=== PATIENT | male | born 1970 ===

== ENCOUNTER 2020-09-01 15:19 | Emergency (ER) | payer SELFPAY ==
[2020-09-01 17:32] VITALS: BP 116/66
--- NOTE | 2020-09-01 19:16 | Emergency Department Report ---
Upper Extremity - HPI Chief Complaint: Extremity Injury, Upper Stated Complaint: GOUT LT ELBOW/RT WRIST Time Seen by Provider: 09/01/20 18:44 Upper Extremity: Right Elbow Occurred When: Today Symptoms: Yes Pain with Movement, Yes Swelling Other History: 49-year-old male presents here today with complaints of acute gout flare to his right elbow. Patient states that his symptoms started today. He reports pain and swelling to the right posterior elbow. He states that he has had similar flares up in his elbow in the past. He states that he takes allopurinol every day. He did admit that he had some ribs yesterday. He reports no other symptoms at this time. ED Review of Systems ROS: Stated complaint: GOUT LT ELBOW/RT WRIST Other details as noted in HPI Comment: All other systems reviewed and negative Constitutional: denies: chills, fever Musculoskeletal: joint swelling, arthralgia ED Past Medical Hx - Past Medical History Previous Medical History?: Yes Additional medical history: gout - Social History Smoking Status: Never Smoker Substance Use Type: None - Medications Home Medications: Home Medications Medication Instructions Recorded Confirmed Last Taken Type HYDROcodone/APAP 5-325 [Flat Top 1 each PO Q4HR PRN #10 tablet 09/01/20 Unknown Rx 5/325] Indomethacin [Indocin] 25 mg PO Q8H #30 capsule 09/01/20 Unknown Rx predniSONE [Deltasone] 50 mg PO QDAY #5 tab 09/01/20 Unknown Rx Upper Extremity Exam - Exam General: Vital signs noted. No distress. Alert and acting appropriately. Head and Torso: No HEENT Abnormality, No Chest/Lungs Abnormality Elbow: Yes Elbow Tenderness (Right posterior elbow with very mild swelling, subtle erythema), Yes Normal Range of Motion in Elbow, No Elbow Deformity Forearm: No Forearm Tenderness, No Forearm Deformity, No Pain with Pronation, No Pain with Supination Wrist: Yes Normal ROM in Wrist, No Wrist Tenderness, No Wrist Deformity, No Snuffbox Tenderness, No Pain with Axial Thumb Compression Hand: Yes Normal ROM in Digit(s), No Hand Tenderness, No Hand Deformity, No Digit Tenderness, No Digit(s) Deformity, No Tendon Dysfunction CMS Exam: Yes Normal Distal Pulses, Yes Normal Capillary Refill, Yes Normal Distal Sensation, No Broken Skin ED Course Vital Signs 09/01/20 17:30 Temperature 98.3 F Pulse Rate 90 Respiratory 19 Rate Blood Pressure 116/66 O2 Sat by Pulse 98 Oximetry Critical care attestation.: If time is entered above; I have spent that time in minutes in the direct care of this critically ill patient, excluding procedure time. ED Disposition Clinical Impression: Acute gout Disposition: DC- TO HOME OR SELFCARE Is pt being admited?: No Does the pt Need Aspirin: No Condition: Stable Instructions: Low-Purine Eating Plan Additional Instructions: Take the prednisone, the indomethacin and the Tylenol threes as prescribed. Follow up with your PCP as needed. Return to ED if worse. Prescriptions: predniSONE [Deltasone] 50 mg PO QDAY #5 tab Indomethacin [Indocin] 25 mg PO Q8H #30 capsule HYDROcodone/APAP 5-325 [Flat Top 5/325] 1 each PO Q4HR PRN #10 tablet PRN Reason: Pain Referrals: GUEVARA OROZCO MD [Staff Physician] - 3-5 Days Time of Disposition: 19:16
== END 2020-09-01 20:15 | disposition home or self-care (01) ==
LOC: ED 15:19
DX: M10.9 Gout, unspecified (principal); Z79.899 Other long term (current) drug therapy
CPT/HCPCS: 99281